=== PATIENT | female | born 2000 | race Caucasian/White ===

== ENCOUNTER 2024-01-02 10:45 | Outpatient (CLI) | payer MEDICAID, SELFPAY | END 2024-01-02 10:46 | disposition home or self-care (01) | PROVIDERS: PCP Family Medicine; Visit Provider Family Medicine | DX: Z00.00 Encounter for general adult medical examination without abnormal findings (principal); E23.0 Hypopituitarism; E03.9 Hypothyroidism, unspecified; E78.5 Hyperlipidemia, unspecified; E27.40 Unspecified adrenocortical insufficiency; Z13.0 Encounter for screening for diseases of the blood and blood-forming organs and certain disorders involving the immune mechanism | CPT/HCPCS: 80053; 80061; 82397; 83519; 84439; 84443 ==